=== PATIENT | female | born 1960 | race Caucasian/White ===

== ENCOUNTER 2017-11-08 08:54 | Outpatient (RCR) | payer OTHER, SELFPAY | END 2017-11-17 23:59 | LOC: DC 08:54 | PROVIDERS: Family Provider Internal Medicine; PCP Internal Medicine; Visit Provider Internal Medicine | DX: E11.9 Type 2 diabetes mellitus without complications (principal); E78.5 Hyperlipidemia, unspecified; E78.1 Pure hyperglyceridemia; Z71.3 Dietary counseling and surveillance | CPT/HCPCS: G0108 ==

== ENCOUNTER 2017-12-11 15:00 | Outpatient (RCR) | payer OTHER, SELFPAY | END 2017-12-17 23:59 | LOC: DC 15:00 | PROVIDERS: Family Provider Internal Medicine; PCP Internal Medicine; Visit Provider Internal Medicine | DX: E78.5 Hyperlipidemia, unspecified (principal); E78.1 Pure hyperglyceridemia; E11.9 Type 2 diabetes mellitus without complications; Z71.3 Dietary counseling and surveillance | CPT/HCPCS: 97802; 97803 ==

== ENCOUNTER 2018-01-30 15:50 | Outpatient (RCR) | payer OTHER, SELFPAY | END 2018-02-16 23:59 | LOC: DC 15:50 | PROVIDERS: Family Provider Internal Medicine; PCP Internal Medicine; Visit Provider Internal Medicine | DX: E78.5 Hyperlipidemia, unspecified (principal); E78.1 Pure hyperglyceridemia; E11.9 Type 2 diabetes mellitus without complications; Z71.3 Dietary counseling and surveillance | CPT/HCPCS: G0109 ==

== ENCOUNTER 2018-02-28 08:30 | Outpatient (RCR) | payer OTHER, SELFPAY | END 2018-02-28 23:59 | disposition home or self-care (01) | LOC: DC 08:30 | PROVIDERS: Family Provider Internal Medicine; PCP Internal Medicine; Visit Provider Internal Medicine | DX: E78.5 Hyperlipidemia, unspecified (principal); E78.1 Pure hyperglyceridemia; E11.9 Type 2 diabetes mellitus without complications; Z71.3 Dietary counseling and surveillance | CPT/HCPCS: 97803; G0109 ==

== ENCOUNTER 2018-03-21 17:02 | Outpatient (RCR) | payer OTHER, SELFPAY | END 2018-04-19 23:59 | LOC: DC 17:02 | PROVIDERS: Family Provider Internal Medicine; PCP Internal Medicine; Visit Provider Internal Medicine | DX: E78.5 Hyperlipidemia, unspecified (principal); E78.1 Pure hyperglyceridemia; E11.9 Type 2 diabetes mellitus without complications; Z71.3 Dietary counseling and surveillance | CPT/HCPCS: G0109 ==

== ENCOUNTER 2018-04-25 12:01 | Outpatient (RCR) | payer OTHER, SELFPAY | END 2018-04-25 23:59 | LOC: DC 12:01 | PROVIDERS: Family Provider Internal Medicine; PCP Internal Medicine; Visit Provider Internal Medicine | DX: E78.5 Hyperlipidemia, unspecified (principal); E78.1 Pure hyperglyceridemia; E11.9 Type 2 diabetes mellitus without complications; Z71.3 Dietary counseling and surveillance | CPT/HCPCS: G0109 ==

== ENCOUNTER → 2019-02-04 | Outpatient (CLI) | payer OTHER, SELFPAY ==
--- NOTE | 2019-02-04 08:31 | US_ITS ---
STUDY: ABDOMINAL ULTRASOUND -left upper quadrant, spleen. REASON FOR VISIT: Female, 58 years old. Evaluate for splenomegaly. TECHNIQUE: Ultrasound evaluation of the right upper quadrant was performed with real-time and static lezama-scale imaging. TECHNICAL QUALITY: Adequate. COMPARISON: None. FINDINGS: The spleen measures 10.6 x 4.8 x 5.7 cm. The left kidney measures 10.8 x 6.3 x 4.7 cm. The cortex measures 1.3 cm. US/Spleen IMPRESSION: Within normal limits size of the spleen. No evidence of hydronephrosis. Electronically Signed: Nona Gardiner MD at 16:44 EDT Tel , Service support ,
== END | disposition home or self-care (01) ==
LOC: US 08:30
PROVIDERS: Family Provider Internal Medicine; PCP Internal Medicine; Referring Provider Internal Medicine; Visit Provider Internal Medicine
DX: R16.1 Splenomegaly, not elsewhere classified (principal)
CPT/HCPCS: 76705

== ENCOUNTER 2020-11-04 10:16 | Outpatient (RCR) | payer OTHER, SELFPAY ==
[2020-11-04] MEDS: COVID-19 VACC, MRNA(PFIZER)/PF 30 MCG/0.3 ML SYRINGE IM (12:33)
[2020-11-25] MEDS: COVID-19 VACC, MRNA(PFIZER)/PF 30 MCG/0.3 ML SYRINGE IM (12:22)
== END 2020-11-04 23:59 ==
LOC: IMMUN 10:16
PROVIDERS: PCP Internal Medicine; Visit Provider Family Medicine
DX: Z23 Encounter for immunization (principal)
CPT/HCPCS: 0001A; 0002A; 91300

== ENCOUNTER → 2025-07-07 | Outpatient (CLI) | payer OTHER, SELFPAY ==
--- NOTE | 2025-07-07 12:15 | RAD_ITS ---
PROCEDURE: HIP, UNI W/ PELVIS 2-3 VIEWS 07/07/2025 REASON FOR EXAM: STRAIN. Left hip pain since February. TECHNIQUE: Procedure Code: RADHP Modality: DX Procedure: HIP, UNI W/ PELVIS 2-3 VIEWS Laterality: Left COMPARISON: None provided. RAD/HIP, UNI W/ Pelvis 2-3 Views IMPRESSION: Prominent degenerative changes are seen of the visualized lower lumbar spine. Minimal sacroiliac joint degenerative changes are seen. Minimal degenerative changes are seen of the hip joints, without associated sandy nt narrowing. No femoral head osteonecrosis is noted. No evidence of fracture or dislocation is seen. Reading Location: [place] [id number]
== END | disposition home or self-care (01) ==
LOC: RAD 12:07
PROVIDERS: PCP Internal Medicine; Referring Provider Chiropractor; Visit Provider Chiropractor
DX: S73.192A Other sprain of left hip, initial encounter (principal); X58.XXXA Exposure to other specified factors, initial encounter
CPT/HCPCS: 73502